=== PATIENT | female | born 1985 | race Caucasian/White ===

== ENCOUNTER 2020-01-14 08:06 | Day surgery (SDC) | payer OTHER ==
[2020-01-11 08:59] VITALS: BMI 20.7
[~2020-01-14 08:06] MED LIST: DEXAMETHASONE SOD PHOSPHATE 10 MG/ML 1 ML VIAL IV ONE; HYDROmorphone 0.5 MG/0.5 ML SYRINGE IVP PRN; LACTATED RINGERS 1,000 ML IV SCH; LIDOCAINE 1% (10MG/ML) FOR IV START INTRADERMA PRN; MIDAZOLAM 2 MG/2 ML VIAL IV PRN; ONDANSETRON 4 MG/2 ML VIAL IVP ONE; fentaNYL (PF) 50 MCG/ML 2 ML AMP IV PRN
[2020-01-14] MEDS ORDERED: HYDROmorphone (PF) 1 MG/ML ONE (11:10)
[2020-01-14] MEDS ORDERED: MIDAZOLAM 2 MG/2 ML VIAL ONE (11:10)
[2020-01-14] MEDS ORDERED: SUCCINYLCHOLINE CHLORIDE 100 MG/5 ML SYR IV ONE (11:10)
[2020-01-14] MEDS ORDERED: LIDOCAINE 1% INJ 10MG/ML (20 ML MDV) ONE (11:10)
[2020-01-14] MEDS ORDERED: PROPOFOL 10 MG/ML 20 ML VIAL IV ONE (11:10)
[2020-01-14] MEDS ORDERED: ESMOLOL 100 MG/10 ML VIAL ONE (11:10)
[2020-01-14] MEDS ORDERED: LIDOCAINE 1%-EPI 1:100,000 20 ML VIAL SQ ONE ×2 (12:34→15:07)
[2020-01-14] MEDS ORDERED: LACTATED RINGERS 1,000 ML IV ONE (15:16)
[2020-01-14 15:34] VITALS: TEMP 98.3
[2020-01-14 15:40] VITALS: RESP 16
[2020-01-14 16:38] VITALS: BP 111/60; PULSE 105
--- NOTE | 2020-01-16 09:25 | P.OP ---
Date of Procedure: 01/14/20 Preoperative Diagnosis: 1. 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 2. Nicotine addiction/tobacco abuse. Postoperative Diagnosis: 1. Complex, high-grade partial left ulnar nerve laceration. 2. 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 3. Nicotine addiction/tobacco abuse. Procedure(s) Performed: 1. Left elbow exploration and sharp excisional debridement. 2. Left ulnar nerve decompression and neurolysis. Anesthesia: GETA, local Surgeon: Caleb Whitten Estimated Blood Loss (ml): 10 Condition: stable Disposition: PACU Indications for Procedure: The patient is a 34-year-old female who was bitten by her own dog on her left elbow. She had immediate loss of sensation in the ring and small fingers but did not initially seek treatment. She presented with persistent sensory deficit and worsening motor weakness. Treatment options (and associated risks and benefits) were discussed in the office. Surgical exploration with possible ulnar nerve repair was recommended. We again discussed her continued smoking and its significantly deleterious effect on her recovery potential I strongly advised quitting. The patient expressed understanding, acceptance of these risks and was in agreement with surgical exploration. In preop, additional questions/concerns were addressed and the patient wished to proceed with surgery. Consent forms were signed. The operative site was confirmed and marked. Operative Findings: The nerve was encased in abundant, dense scar tissue, most prominent just distal to Osbornes ligament. The zone of injury was ~4 cm in total length. Though nerve was still in-continuity along its length, there was core damage to the nerve, extending approximately 3 cm and involving 30-50% of the cross-sectional area. The neural tissue was macerated, consistent with the crushing/tearing mechanism of the dog bite. Two proximal exiting motor branches showed segmental defects. No gross purulence. No obvious debris or foreign bodies. No necrotic muscle or subcutaneous tissue. Description of Procedure: The patient was positioned supine with the operative limb on a hand table. Anesthesia and prophylactic IV antibiotics were administered uneventfully. The left upper extremity was prepped and draped in standard, sterile fashion. A sterile tourniquet was applied. A time-out was performed, confirming patient identifiers, the operative side, the site and the procedure to be performed: all team members expressed agreement. The limb was exsanguinated with an Esmarch and the tourniquet was inflated. Local anesthetic with epinephrine was injected around the planned incision and surgical field. Loupe magnification was utilized initially. A curvilinear incision was marked posterior to the medial epicondyle, incorporating the traumatic bite wound. The skin was sharply incised and the bite wound was excised in elliptical fashion, removing a full-thickness segment of skin and subcutaneous tissue measuring 9 mm x 25 mm. The subcutaneous tissues were divided with spreading dissection, cauterizing superficial vessels as needed. Small branches of the medial antebrachial cutaneous nerve were identified crossing the proximal and distal aspects of the surgical field. These were mobilized and protected throughout the case. The ulnar nerve was palpably identified in the retrocondylar groove. The perineural tissue was released along its posterior margin, leaving a cuff of tissue to prevent anterior subluxation. The nerve appeared uninjured at this level. It was traced distally into the cubital tunnel. The nerve was firmly encased in thick, adherent fibrous tissue. Dense, calcified tissue was identified overlying the common flexor-pronator origin and was sharply excised. Some tiny osseous-appearing fragments were noted within the overlying fibrotic tissue and were resected as well. The muscle fascia was released and the underlying fibers were carefully spread to identify the nerve outside the zone of injury. An operating microscope was brought in. Vessel loops were passed around the nerve for atraumatic handling. Working from the periphery towards the zone of injury, the nerve was carefully dissected free using microsurgical instruments. A thorough neurolysis was performed. See operative findings for further details. The majority of the superficial/posterior fascicles were still intact, but their appearance was consistent with [id number]. The deep/anterior neural tissue, however, was severely traumatized and not felt to be repairable. The floor of the cubital tunnel was palpated. The cortical surface of the adjacent proximal ulna was irregular and slightly prominent, suggestive of an osseous injury from the bite. This was carefully debrided with a curette to smooth the roughened surface. The wound was copiously irrigated with normal saline using a bulb syringe. The elbow was taken through a full range of motion: there was no instability, subluxation or tethering of the nerve. The tourniquet was released after 86 minutes at 150 mmHg and was not used for the remainder the case. Good hemostasis was obtained with manual pressure and bipolar cautery. The subcutaneous tissues were reapproximated with interrupted 3-0 Vicryl sutures. The incision was closed with 4-0 Nylon, using an alternating running/horizontal mattress stitch. Additional local anesthetic with epinephrine was injected for adjunct postoperative pain control and hemostasis. A soft, sterile dressing was applied. All sponge, needle and instrument counts were correct at the end of the case. The patient tolerated the procedure well and was transferred to recovery in stable condition. Postoperative plan: Given the complexity of the nerve damage and the amount of time that has transpired since the injury, the patient will be referred to a tertiary care facility for definitive treatment with likely nerve grafting or distal nerve transfers.
--- NOTE | 2020-01-23 08:32 | CDI ---
Date: 01.23.20 CDS/Community Recreation Coordinator Name: Beverly Hayden Phone: If any questions, call [facility] [employer] at [phone] Patient Name: Jayna Gallegos Admit Date: 01.14.20 Discharge Date: 01.14.20 ATTENTION: The [facility] Coding Staff appreciate your assistance in clarifying documentation. Please respond to the clarification below the line at the bottom and electronically sign. The [facility] Coding staff will review the response and follow-up if needed. Please note: Queries are made part of the Legal Health Record. If you have any questions, please contact the Mechanical Maintenance. Dear Dr. Whitten This patient had an Ulnar nerve decompression and neurolysis, in the process of this procedure you debrided the proximal ulnar bone. What was the total surface of the area you debrided? Thank you for your kind consideration. Approximately 2 cm2 MTDD
== END 2020-01-14 16:53 | disposition home or self-care (01) ==
LOC: OR 08:06 → MERGE 08:06 → OR 16:53
PROVIDERS: ATTEND Orthopaedic Surgery
DX: S54.02XA Injury of ulnar nerve at forearm level, left arm, initial encounter (principal); G56.22 Lesion of ulnar nerve, left upper limb; S51.052A Open bite, left elbow, initial encounter; S61.452A Open bite of left hand, initial encounter; J45.909 Unspecified asthma, uncomplicated; F17.210 Nicotine dependence, cigarettes, uncomplicated; Z87.898 Personal history of other specified conditions; Z79.3 Long term (current) use of hormonal contraceptives; Z79.899 Other long term (current) drug therapy; W54.0XXA Bitten by dog, initial encounter; Y93.89 Activity, other specified
CPT/HCPCS: 64718; 64727; 81025; 11044; J2250; J1100; J0690; J2405; J2001; J1170; J0330; J2704

== ENCOUNTER → 2022-05-10 | Outpatient (CLI) | payer OTHER | END | disposition home or self-care (01) | LOC: LABWHC1 08:24 | PROVIDERS: ATTEND Physician Assistant Medical | DX: E55.9 Vitamin D deficiency, unspecified (principal) | CPT/HCPCS: 36415; 82306 ==